=== PATIENT | female | born 1945 | race Two or more races ===

== ENCOUNTER 2019-03-27 14:16 | Day surgery (SDC) | payer MEDICARE, BC ==
[2019-03-27] VITALS (13 sets, daily range): BP systolic 106–161; BP diastolic 56–95
[~2019-03-27] VITALS: Ht 154.9 cm; Wt 70.5 kg
[~2019-03-27 14:16] MED LIST: COU5T PO; DILT120C62 PO; ENOX60DI SQ; FLEC50TA26 PO; MULT-342 PO; NAPR-706 PO
[2019-03-27] MEDS ORDERED: MIDAZolam 1mg/ml 10ml vial IV ONE (14:35)
[2019-03-27] MEDS ORDERED: fentaNYL/PF 50MCG/1 ML 2ML syringe IV ONE (14:35)
[2019-03-27] MEDS ORDERED: normal saline 1000ml 1,000 ML IV SCH (14:35)
[2019-03-27] MEDS ORDERED: GABA-532 PO (14:43)
[2019-03-27] MEDS ORDERED: DRON400T2 PO (14:43)
[2019-03-27] MEDS ORDERED: FLU VACC QS2019-20 36MOS UP/PF 60 MCG/0.5 ML SYRINGE IMVAC ONE (15:30)
[2019-03-30] MEDS ORDERED: NAPR-1115 PO (15:20)
== END 2019-03-27 18:33 | disposition home or self-care (01) ==
LOC: SSTAY O 14:16
PROVIDERS: ATTEND Internal Medicine Interventional Cardiology
DX: I48.19 Other persistent atrial fibrillation (principal); Z23 Encounter for immunization; G47.30 Sleep apnea, unspecified; I35.1 Nonrheumatic aortic (valve) insufficiency
CPT/HCPCS: 92960; 93005; Q2037

== ENCOUNTER 2020-08-15 15:50 | Emergency (ER) | payer MEDICARE, BC ==
[~2020-08-15] VITALS: Ht 154.9 cm; Wt 69.5 kg
[~2020-08-15 15:50] MED LIST changes: +ATOR20TA PO; +CARV3.12 PO; -COU5T PO; -DILT120C62 PO; +DRON400T7 PO; -ENOX60DI SQ; -FLEC50TA26 PO; +GABA-532 PO; +NAPR-1115 PO; -NAPR-706 PO; +WARF-113 PO
[2020-08-15 16:42] LABS: BASOPHILS # (AUTO) 0.1 X10'3 (0-0.2); BASOPHILS % (AUTO) 0.7 % (0-1); EOSINOPHILS # (AUTO) 0.1 X10'3 (0-0.9); HEMATOCRIT 37.4 % (35.0-45.0); HEMOGLOBIN 12.6 g/dl (12.0-16.0); LYMPHOCYTES # (AUTO) 2.3 X10'3 (1.1-4.8); LYMPHOCYTES % (AUTO) 30.1 % (21-51); MEAN CORPUSCULAR HEMOGLOBIN 32.6 PG (27.0-31.0); MEAN CORPUSCULAR HGB CONC 33.8 g/dL (33.0-36.5); MEAN CORPUSCULAR VOLUME 96.5 FL (78-98); MEAN PLATELET VOLUME 7.7 FL (7.4-10.4); MONOCYTES # (AUTO) 0.7 X10'3 (0-0.9); MONOCYTES % (AUTO) 9.5 % (2-12); NEUTROPHILS # (AUTO) 4.6 X10'3 (1.8-7.7); NEUTROPHILS % (AUTO) 58.7 % (42-75); PLATELET COUNT 218 X10'3 (140-440); RED BLOOD COUNT 3.87 X10'6 (4.20-5.60); RED CELL DISTRIBUTION WIDTH 14.3 % (11.5-14.5); WHITE BLOOD COUNT 7.8 X10'3 (4.5-11.0)
[2020-08-15 16:48] LABS: PARTIAL THROMBOPLASTIN TIME 39 SECONDS (22-32)
[2020-08-15 16:53] LABS: ALANINE AMINOTRANSFERASE 44 U/L (12-78); ALBUMIN 3.8 G/DL (3.4-5.0); ALBUMIN/GLOBULIN RATIO 1.4 (1.1-1.5); ALKALINE PHOSPHATASE 77 IU/L (46-116); ANION GAP 8 (8-16); ASPARTATE AMINO TRANSFERASE 23 U/L (10-37); BILIRUBIN,TOTAL 0.6 MG/DL (0.1-1.0); BLOOD UREA NITROGEN 23 MG/DL (7-18); BUN/CREATININE RATIO 24.2 (6.6-38.0); CALCIUM 8.6 MG/DL (8.5-10.1); CHLORIDE 103 MMOL/L (99-107); CREATININE 0.95 MG/DL (0.40-0.90); GLUCOSE 108 MG/DL (70-104); POTASSIUM 4.1 MMOL/L (3.5-5.1); SODIUM 138 MMOL/L (135-145); TOTAL CARBON DIOXIDE 26.8 MMOL/L (24-32); TOTAL PROTEIN 6.5 G/DL (6.4-8.2); eGFR 58 ML/MIN
--- NOTE | 2020-08-15 17:36 | NUR ---
Gait test performed. Patient walked 200 feet on room air, sp02 stayed >97%.
[2020-08-15 17:57] VITALS: BP 143/85
== END 2020-08-15 18:09 | disposition home or self-care (01) ==
LOC: ER 15:50
DX: R06.02 Shortness of breath (principal); R07.89 Other chest pain; I48.91 Unspecified atrial fibrillation; I25.10 Atherosclerotic heart disease of native coronary artery without angina pectoris; I50.9 Heart failure, unspecified; G89.29 Other chronic pain; Z95.810 Presence of automatic (implantable) cardiac defibrillator; Z90.710 Acquired absence of both cervix and uterus; Z98.890 Other specified postprocedural states; Z91.013 Allergy to seafood; Z79.899 Other long term (current) drug therapy
CPT/HCPCS: 36415; 71045; 80053; 83880; 84484; 85025; 85610; 85730; 93005; 99285

== ENCOUNTER 2020-10-22 09:35 | Day surgery (SDC) | payer MEDICARE, BC ==
[~2020-10-22] VITALS: Ht 154.9 cm; Wt 72.5 kg
[2020-10-22] VITALS (12 sets, daily range): BP systolic 105–134; BP diastolic 67–86
[2020-10-22] MEDS ORDERED: fentaNYL/PF 50MCG/1 ML 2ML syringe IV ONE (10:05)
[2020-10-22] MEDS ORDERED: normal saline 1000ml 1,000 ML IV SCH (10:05)
[2020-10-22] MEDS ORDERED: MIDAZolam 1mg/ml 10ml vial IV ONE (10:05)
[2020-10-22] MEDS ORDERED: FURO20TA4 PO (10:21)
[2020-10-22] MEDS ORDERED: PREG150C46 PO (10:21)
[2020-10-22] MEDS ORDERED: CARV3.123 PO (10:21)
[2020-10-22] MEDS ORDERED: APIX5TAB3 PO (10:21)
[2020-10-22] MEDS ORDERED: ATOR20TA66 PO (10:21)
[2020-10-22 10:45] LABS: HEMOGLOBIN 14.4 g/dl (12.0-16.0); WHITE BLOOD COUNT 6.6 X10'3 (4.5-11.0)
[2020-10-22 10:47] LABS: BASOPHILS % (AUTO) 0.5 % (0-1); EOSINOPHILS % (AUTO) 0.3 % (0-6); HEMATOCRIT 43.9 % (35.0-45.0); LYMPHOCYTES # (AUTO) 1.9 X10'3 (1.1-4.8); LYMPHOCYTES % (AUTO) 28.9 % (21-51); MEAN CORPUSCULAR HEMOGLOBIN 32.2 PG (27.0-31.0); MEAN CORPUSCULAR HGB CONC 32.9 g/dL (33.0-36.5); MEAN CORPUSCULAR VOLUME 97.8 FL (78-98); MEAN PLATELET VOLUME 7.2 FL (7.4-10.4); MONOCYTES # (AUTO) 0.6 X10'3 (0-0.9); MONOCYTES % (AUTO) 9.7 % (2-12); NEUTROPHILS % (AUTO) 60.6 % (42-75); PLATELET COUNT 243 X10'3 (140-440); RED BLOOD COUNT 4.48 X10'6 (4.20-5.60); RED CELL DISTRIBUTION WIDTH 14.9 % (11.5-14.5)
[2020-10-22 10:55] LABS: ALBUMIN 3.9 G/DL (3.4-5.0); ANION GAP 8 (8-16); BLOOD UREA NITROGEN 21 MG/DL (7-18); BUN/CREATININE RATIO 29.6 (6.6-38.0); CHLORIDE 102 MMOL/L (99-107); CREATININE 0.71 MG/DL (0.40-0.90); GLUCOSE 121 MG/DL (70-104); POTASSIUM 4.4 MMOL/L (3.5-5.1); SODIUM 137 MMOL/L (135-145); TOTAL CARBON DIOXIDE 27.1 MMOL/L (24-32); eGFR 81 ML/MIN
== END 2020-10-22 15:45 | disposition home or self-care (01) ==
LOC: SSTAY O 09:35
PROVIDERS: ATTEND Internal Medicine Interventional Cardiology
DX: I48.0 Paroxysmal atrial fibrillation (principal); G47.33 Obstructive sleep apnea (adult) (pediatric); I50.32 Chronic diastolic (congestive) heart failure; I08.3 Combined rheumatic disorders of mitral, aortic and tricuspid valves; Z79.01 Long term (current) use of anticoagulants; I27.20 Pulmonary hypertension, unspecified; Z79.899 Other long term (current) drug therapy
CPT/HCPCS: 36415; 80048; 85025; 85610; 92960; 93005; 94799; J2250; J3010; J7030

== ENCOUNTER 2022-09-15 14:04 | Emergency (ER) | payer MEDICARE, BC ==
[~2022-09-15] VITALS: Ht 154.9 cm; Wt 75.0 kg
[~2022-09-15 14:04] MED LIST changes: +APIX5TAB3 PO; -ATOR20TA PO; +ATOR20TA66 PO; -CARV3.12 PO; +CARV3.123 PO; +FURO20TA4 PO; -GABA-532 PO; +PREG150C46 PO; -WARF-113 PO
[2022-09-15 14:06] VITALS: BP 137/86; PULSE 82; TEMP 98.5; O2SAT 96
[2022-09-15] MEDS ORDERED: oxyCODONE IR 5mg (immed. release) tablet PO ONE (15:55)
[2022-09-15] MEDS ORDERED: diphenhydrAMINE 25mg capsule PO ONE (15:55)
[2022-09-15 16:35] VITALS: RESP 18
== END 2022-09-15 16:42 | disposition home or self-care (01) ==
LOC: ER 14:05
DX: G89.18 Other acute postprocedural pain (principal); M54.50 Low back pain, unspecified; I50.9 Heart failure, unspecified; Z91.013 Allergy to seafood; Z79.899 Other long term (current) drug therapy; Z90.710 Acquired absence of both cervix and uterus
CPT/HCPCS: 72100; 99283